=== PATIENT | female | born 1970 | race Caucasian/White ===

== ENCOUNTER 2019-09-05 09:07 | Outpatient (CLI) | payer BC, SELFPAY ==
--- NOTE | 2019-09-05 09:15 | XR_ITS ---
WS: [id number] LEFT FOOT: 3 VIEW(S) TECHNIQUE: AP, oblique and lateral. HISTORY: FOOT PAIN COMPARISON: 09/19/2011 Healed fracture in the mid second metatarsal diaphysis. There is a lucency with flattening and osteoc hondral defect involving the second metatarsal head. Hallux valgus deformity is moderate. Normal tarsal/metatarsal alignment. No soft tissue abnormalities. XR/XR foot LT min 3V* [id number] IMPRESSION: 1. New, acute appearing osteonecrosis second metatarsal head ([place] infract ion). 2. Healed mid second metatarsal fracture. 3. Hallux valgus deformity.
== END 2019-09-05 09:08 | disposition home or self-care (01) ==
LOC: RADWPI 09:11
PROVIDERS: Family Provider Family Medicine; PCP Family Medicine; Visit Provider Family Medicine
DX: M79.672 Pain in left foot (principal); M87.875 Other osteonecrosis, left foot; M20.12 Hallux valgus (acquired), left foot
CPT/HCPCS: 73630

== ENCOUNTER 2019-09-11 15:20 | Outpatient (CLI) | payer BC, SELFPAY | END 2019-09-11 15:21 | disposition home or self-care (01) | LOC: SPT 15:21 | PROVIDERS: Family Provider Family Medicine; PCP Family Medicine; Visit Provider Podiatrist Foot & Ankle Surgery | DX: Z46.89 Encounter for fitting and adjustment of other specified devices (principal); M84.375D Stress fracture, left foot, subsequent encounter for fracture with routine healing; X58.XXXD Exposure to other specified factors, subsequent encounter | CPT/HCPCS: 97760; L3031 ==

== ENCOUNTER → 2019-10-23 08:25 | Outpatient (BNVA) | payer BC, SELFPAY | PROVIDERS: Family Provider Family Medicine; PCP Family Medicine; Visit Provider Podiatrist Foot & Ankle Surgery | DX: M77.42 Metatarsalgia, left foot (principal) | CPT/HCPCS: 73630 ==

== ENCOUNTER 2019-11-27 15:33 | Outpatient (CLI) | payer BC, SELFPAY | END 2019-11-27 15:34 | disposition home or self-care (01) | LOC: SPT 15:34 | PROVIDERS: Family Provider Family Medicine; PCP Family Medicine; Visit Provider Podiatrist Foot & Ankle Surgery | DX: Z46.89 Encounter for fitting and adjustment of other specified devices (principal); M84.375D Stress fracture, left foot, subsequent encounter for fracture with routine healing; X58.XXXD Exposure to other specified factors, subsequent encounter | CPT/HCPCS: L3030 ==

== ENCOUNTER 2020-02-25 08:16 | Outpatient (CLI) | payer BC, SELFPAY ==
--- NOTE | 2020-02-25 08:45 | CT_ITS ---
WS: [id number] CT CHEST TECHNIQUE: Contrast enhanced CT of the chest with coronal and sagittal reformatted images. CLINICAL INFORMATION: LUNG NODULE COMPARISON: None. DLP: 742.[address] scans at [facility] use at least one of these dose optimization techniques: automat ed exposure control; mA and/or kV adjustment per patient size (includes targeted exams where dose is matched to clinical indication); or iterative reconstruction. FINDINGS: Postoperative changes bilateral breast implants. No acute pulmonary infiltrates. Noncalcified ovoid n odule in the right upper lobe. Additional tiny adjacent satellite micronodular tree-in-bud type infil trates likely infectious or inflammatory. No other suspicious pulmonary parenchymal abnormalities. Normal caliber thoracic aorta. Proximal main pulmonary arteries are normal. No axillary lymphadenopat hy. A few Schmorl's nodes in the mid thoracic spine. Pectus excavatum. CT/CT chest w con* [id number] IMPRESSION: 1. Noncalcified nodule in the right upper lobe measuring 5 mm. 2. A few adjacent surrounding micronodular tree-in-bud infiltrates likely infe ctious or inflammatory. Recommend 3-6 month follow-up. 3. No mediastinal or hilar lymphadenopathy. 4. Postoperative changes both breasts.
[2020-02-25] MEDS: iohexol 300 mg/mL 100 mL Btl IV (09:05)
== END 2020-02-25 08:17 | disposition home or self-care (01) ==
PROVIDERS: PCP Family Medicine; Visit Provider Family Medicine
DX: R91.8 Other nonspecific abnormal finding of lung field (principal)
CPT/HCPCS: 71260; Q9967

== ENCOUNTER 2020-03-11 13:51 | Outpatient (CLI) | payer BC, SELFPAY ==
--- NOTE | 2020-03-11 14:00 | MM_ITS ---
WS: [id number] BILATERAL SCREENING MAMMOGRAM WITH CHARMAINE DISPLACEMENT VIEWS. CAD PERFORMED. HISTORY: Z12.39 - Encounter for other screening for malignant neoplasm of breast COMPARISON: 03/08/2019 and 03/02/2018 Bilateral craniocaudal and mediolateral like views are performed. Charmaine displacement views in CC and MLO projection also performed. Breasts composition: There are scattered areas of fibroglandular density. Breast implants are intact. No suspicious masses or calcifications or distortion. MM/[place] [id number] IMPRESSION: BI-RADS: 2-Benign FOLLOW-UP: 1 Year Follow-up
== END 2020-03-11 13:52 | disposition home or self-care (01) ==
LOC: RADSHAW 13:53
PROVIDERS: PCP Family Medicine; Visit Provider Obstetrics & Gynecology
DX: Z12.31 Encounter for screening mammogram for malignant neoplasm of breast (principal)
CPT/HCPCS: 77067

== ENCOUNTER 2020-09-03 08:39 | Outpatient (CLI) | payer BC, SELFPAY ==
--- NOTE | 2020-09-03 09:23 | CT_ITS ---
WS: [id number] CT CHEST WITH INTRAVENOUS CONTRAST HISTORY: LUNG NODULE TECHNIQUE: Contiguous 5 mm axial imaging performed on the thorax. Coronal and sagittal reformats are submitted. All CT scans at [facility] use at least one of these dose optimization techniq ues: automated exposure control; mA and/or kV adjustment per patient size (includes targeted exams wh ere dose is matched to clinical indication); or iterative reconstruction. CONTRAST: Omnipaque 300; 95 mL IV. DLP: 652.16 mGycm COMPARISON: 02/25/2020 Lungs and central airway: Previously described nodule is probably a perifissural nodule measuring 5 m m. These are typically benign. There is an additional perifissural nodule which is smaller along the minor fissure. No suspicious masses or calcifications. Pleura: Normal. No pleural effusion. Heart and pericardium: Heart is being deformed by a pectus deformity with the distal sternum contacti ng the heart. No pericardial effusion. Mediastinum and vipin: No mediastinum or hilar adenopathy. Vessels: Normal size aortic and pulmonary artery. No coronary artery calcifications. Chest wall and lower neck: Pectus deformity. Bilateral calcified breast implants. Upper abdomen: Negative. Osseous structures: No destructive process. CT/CT chest w con* [id number] IMPRESSION: 1. Stable perifissural nodule's along the minor fissure. No increase in size s [place] 02/25/2020. These are typically benign intramammary lymph nodes. Consider [address] follow-up for completeness. 2. Calcified bilateral breast implants.
[2020-09-03] MEDS: iohexol 300 mg/mL 100 mL Btl IV (09:32)
== END 2020-09-03 08:40 | disposition home or self-care (01) ==
PROVIDERS: PCP Family Medicine; Visit Provider Family Medicine
DX: R91.1 Solitary pulmonary nodule (principal); Z98.82 Breast implant status
CPT/HCPCS: 71260; Q9967

== ENCOUNTER 2022-02-11 08:19 | Outpatient (CLI) | payer BC, SELFPAY ==
--- NOTE | 2022-02-11 08:31 | MM_ITS ---
WS: [id number] BILATERAL SCREENING DIGITAL TOMOSYNTHESIS MAMMOGRAM WITH CAD HISTORY: SCREENING COMPARISON: 03/11/2020, 03/08/2019 Bilateral CC and MLO views with tomosynthesis and synthetic mammography submitted. Computer aided det ection analyzed. Breast composition: There are scattered areas of fibroglandular density. No suspicious masses, microc alcifications or architectural distortion. Breast implants have been removed since the prior study. M ild distortion of the trabecular pattern of each breast from the prior surgery. No mass. MM/[place] [id number] IMPRESSION: BI-RADS: 2-Benign FOLLOW UP: 1 Year Follow-up
== END 2022-02-11 08:20 | disposition home or self-care (01) ==
PROVIDERS: PCP Obstetrics & Gynecology; Visit Provider Obstetrics & Gynecology
DX: Z12.31 Encounter for screening mammogram for malignant neoplasm of breast (principal)
CPT/HCPCS: 77063; 77067

== ENCOUNTER 2023-02-15 07:54 | Outpatient (CLI) | payer BC, SELFPAY ==
--- NOTE | 2023-02-15 08:06 | MM_ITS ---
WS: [id number] SCREENING DIGITAL TOMOSYNTHESIS MAMMOGRAM WITH CAD HISTORY: SCREENING COMPARISON: 02/11/2022 and 03/11/2020 Bilateral CC and MLO with tomosynthesis views submitted. Synthetic mammography reviewed. Computer aid ed detection analyzed. Breast composition: There are scattered areas of fibroglandular density. No suspicious masses, microc alcifications or architectural distortion. Benign calcifications in each breast. IMPRESSION: MM/[place] [id number] BI-RADS: 2-Benign FOLLOW UP: 1 Year Follow-up
== END 2023-02-15 07:55 | disposition home or self-care (01) ==
LOC: RAD 07:54
PROVIDERS: PCP Obstetrics & Gynecology; Visit Provider Obstetrics & Gynecology
DX: Z12.31 Encounter for screening mammogram for malignant neoplasm of breast (principal)
CPT/HCPCS: 77063; 77067

== ENCOUNTER 2023-09-29 08:08 | Outpatient (CLI) | payer BC, SELFPAY ==
--- NOTE | 2023-09-29 08:15 | CT_ITS ---
WS: [id number] CT chest wo con [id number] HISTORY: LUNG NODULE TECHNIQUE: Axial imaging performed through the thorax. Coronal and sagittal reformats are submitted. All CT scans at [facility] use at least one of these dose optimization techniques: automated exposure control; mA and/or kV adjustment per patient size (includes targeted exams where dose is mat ched to clinical indication); or iterative reconstruction. CONTRAST: None DLP: 265.76 mGy COMPARISON: 09/03/2020, 02/25/2020 Lungs and central airway: Well aerated lungs. Reidentified is the 6 mm RIGHT minor fissure nodule. No increase in size. No new mass or nodule. No pneumonia. No atelectasis. Pleura: Normal. No pleural effusion. Heart and pericardium: Normal size heart with no pericardial effusion. Mediastinum and vipin: No adenopathy identified. Mediastinal and hilar structures are limited without IV contrast. Vessels: Normal size aortic and pulmonary artery. No coronary artery calcifications. Chest wall and lower neck: Mild pectus excavatum. Since the prior examination breast implants have be en removed. Upper abdomen: No adrenal mass. Small hiatal hernia. Osseous structures: Mild increase in thoracic kyphosis. CT/CT chest wo con [id number] IMPRESSION: 1. Long-term stability RIGHT minor perifissural nodule. No new mass or nodule. 2. Interval removal of the bilateral breast implants. 3. No pneumonia.
== END 2023-09-29 08:09 | disposition home or self-care (01) ==
LOC: RAD 08:09
PROVIDERS: PCP Obstetrics & Gynecology; Visit Provider Family Medicine
DX: R91.8 Other nonspecific abnormal finding of lung field (principal)
CPT/HCPCS: 71250

== ENCOUNTER 2024-02-20 07:37 | Outpatient (CLI) | payer BC, SELFPAY ==
--- NOTE | 2024-02-20 07:40 | MM_ITS ---
WS: [id number] BILATERAL 3D TOMOSYNTHESIS DIGITAL SCREENING MAMMOGRAPHY WITH CAD CLINICAL INFORMATION: SCREENING HISTORY: Screening mammogram. No current complaints. Prior implant removal. COMPARISON: None. TECHNIQUE: Bilateral CC and MLO views. FINDINGS: Scattered fibroglandular densities bilaterally. No suspicious focal mass, asymmetry, calcifications, or architectural distortion. No evidence of malignancy. Incidental punctate calcifications. MM/MM scr tomosynthesis [id number] IMPRESSION: DENSITY: There are scattered areas of fibroglandular density. BI-RADS: 2 - Benign. FOLLOW UP: 1 Year Follow-up Recommend return to annual screening mammography.
== END 2024-02-20 07:38 | disposition home or self-care (01) ==
PROVIDERS: PCP Obstetrics & Gynecology; Visit Provider Family Medicine
DX: Z12.31 Encounter for screening mammogram for malignant neoplasm of breast (principal); R92.323 Mammographic fibroglandular density, bilateral breasts; R92.1 Mammographic calcification found on diagnostic imaging of breast
CPT/HCPCS: 77063; 77067

== ENCOUNTER 2025-02-20 10:36 | Outpatient (CLI) | payer BC, SELFPAY ==
--- NOTE | 2025-02-20 10:41 | MM_ITS ---
WS: [id number] BILATERAL SCREENING DIGITAL TOMOSYNTHESIS MAMMOGRAM WITH CAD HISTORY: SCREENING COMPARISON: 02/20/2024, 02/15/2023, 02/11/2022 Bilateral CC and MLO views with tomosynthesis and synthetic mammography submitted. Computer aided detection analyzed. Breast composition: There are scattered areas of fibroglandular density. No suspicious masses, microcalcifications or architectural distortion. There are a few scattered calcifications. No area of distortion. Implants were previously removed. MM/MM scr tomosynthesis [id number] IMPRESSION: BI-RADS: 2 - Benign. FOLLOW UP: 1 Year Follow-up
== END 2025-02-20 10:37 | disposition home or self-care (01) ==
LOC: RAD 10:37
PROVIDERS: PCP Obstetrics & Gynecology; Visit Provider Family Medicine
DX: Z12.31 Encounter for screening mammogram for malignant neoplasm of breast (principal); R92.323 Mammographic fibroglandular density, bilateral breasts; R92.1 Mammographic calcification found on diagnostic imaging of breast; Z98.86 Personal history of breast implant removal
CPT/HCPCS: 77063; 77067